=== PATIENT | female | born 1990 | race Hispanic/Latino ===

== ENCOUNTER 2018-02-09 20:00 | Emergency (ER) | payer OTHER ==
[~2018-02-09] VITALS: Ht 152.4 cm; Wt 52.6 kg
[2018-02-09 20:12] VITALS: BP 113/78
--- NOTE | 2018-02-09 21:10 | RADIOLOGY REPORT ---
EXAMINATION: RIGHT KNEE 3 VIEWS CLINICAL INFORMATION: Right knee pain. COMPARISON: None. TECHNIQUE: AP, lateral, oblique views of the right knee were obtained. FINDINGS: There are no fractures or dislocations. There is no knee joint effusion. There is mild soft tissue swelling overlying the patellar tendon. IMPRESSION: Mild soft tissue swelling without fracture or joint effusion.
--- NOTE | 2018-02-09 21:19 | ED UPPER/LOWER EXTREMITY COMPL ---
History of Present Illness General Chief Complaint: Lower Extremity Injury Stated Complaint: "RT KNEE POPPED OUT OF PLACE" Source: patient Exam Limitations: no limitations Vital Signs & Intake/Output Vital Signs & Intake/Output Vital Signs Date Time Temp Pulse Resp B/P B/P Pulse O2 O2 Flow FiO2 Mean Ox Delivery Rate 02/10 2012 98.3 57 18 113/78 97 Room Air ED Intake and Output 02/10 0000 02/09 1200 Intake Total Output Total Balance Patient 116 lb Weight Weight Reported by Patient Measurement Method Allergies Coded Allergies: No Known Drug Allergies (NKDA 02/09/18) Reconcile Medications Meloxicam (Mobic) 15 MG TABLET 1 TAB PO DAILY PRN pain Triage Note: PT TO ED C/O SWELLING TO RT KNEE CAP, NOTICED 30 MINS - 1 HR AGO. STATES DID A LOT OF CLEANING TODAY ON HER KNEES. "IT LOOKED LIKE IT WAS OUT OF PLACE" PT AMBULATING WITHOUT DIFFICULTY. C/O "PULLING FEELING" FROM KNEE CAP DOWN FRONT OF LEG. MEDICATED WITH 600 MG IBUPROFIN IN TRIAGE. Triage Nurses Notes Reviewed? yes Onset: Gradual Duration: hour(s): Timing: single episode today Severity: moderate Pain/Injury Location: Right: Knee. : No Patient currently breastfeeds: No HPI: 28yo female presents to ED complaining of right knee pain with swelling beginning today. Patient states that earlier today she was working on her knees and cleaning her home. She notes that as the day went on she has pain in right knee with swelling. Patient is worried that the knee cap is out of place because she felt a popping sensation. Patient states that her knee cap appeared to be dislocated laterally however she moved it back into the right place. She had no trauma or fall prior to onset of symptoms. Patient denies numbess, tingling. (Dahlia Limon) Past History Travel History Traveled to [place] past 21 day No Medical History Any Pertinent Medical History? none Neurological: NONE EENT: NONE Cardiovascular: NONE Respiratory: NONE Gastrointestinal: NONE Hepatic: NONE Renal: NONE Musculoskeletal: NONE Psychiatric: NONE Endocrine: NONE Blood Disorders: NONE Cancer(s): NONE Surgical History Surgical History: non-contributory Psychosocial History What is your primary language Maltese Tobacco Use: Never used ETOH Use: occasional use Illicit Drug Use: denies illicit drug use Family History Hx Contributory? No (Dahlia Limon) Review of Systems Review of Systems Constitutional: Reports: no symptoms. EENTM: Reports: no symptoms. Respiratory: Reports: no symptoms. Cardiovascular: Reports: no symptoms. Gastrointestinal/Abdominal: Reports: no symptoms. Genitourinary: Reports: no symptoms. Musculoskeletal: Reports: see HPI. Skin: Reports: no symptoms. Neurological/Psychological: Reports: no symptoms. Hematologic/Endocrine: Reports: no symptoms. Immunological: Reports: no symptoms. All Other Systems: Reviewed and Negative (Dahlia Limon) Physical Exam Physical Exam General Appearance: well developed/nourished, no apparent distress, alert, awake Head: atraumatic, normal appearance Eyes: Bilateral: normal appearance. Ears, Nose, Throat: hearing grossly normal Neck: normal inspection, supple, full range of motion Cardiovascular/Respiratory: normal peripheral pulses, no respiratory distress Peripheral Pulses: 2+ dorsalis pedis (R) Back: normal inspection, normal range of motion Leg Left: normal range of motion, normal inspection Leg Right: normal range of motion, normal inspection Hip Left: normal range of motion, normal inspection Hip Right: normal range of motion, normal inspection Knee Left: normal range of motion, normal inspection Knee Right: mild swelling to anterior knee around patella, tenderness to palpation of patella without obvious dislocation or deformity Foot Left: normal inspection, normal range of motion Foot Right: normal inspection, normal range of motion Neurologic/Tendon: normal sensation, normal motor functions, normal tendon functions Skin: intact, normal color, warm/dry (Dahlia Limon) Progress Differential Diagnosis: dislocation, fracture, sprain, tendon injury Plan of Care: Orders Procedure Date/time Status URINE 02/09 2007 Complete Laboratory Tests 02/09/18 2015: Urine Test NEGATIVE Patient's x-rays show no acute bony abnormality, no dislocation. Patient has soft tissue swelling around patella however no joint effusion. Symptoms likely related to overuse injury/strain today. There is no trauma, low suspicion for a patellar dislocation. Patient placed in Lucio wrap for stability and she will begin RICE therapy and NSAIDS. Patient given referral to orthopedic doctor for persistent symptoms. Patient informed that if her symptoms are persistent she may require further imaging such as an MRI. Patient ambulatory here in the emergency Department with steady gait. She has intact distal pulses. No trauma or inciting event prior to onset of her symptoms, low suspicion for arterial abnormality at this time. Diagnostic Imaging: Viewed by Me: Radiology Read. Discussed w/RAD: Radiology Read. Radiology Impression: PATIENT: ARMOND GURROLA PRESENT AGE: 28 PATIENT ACCOUNT NO: [id number] : 89 LOCATION: [facility] ORDERING PHYSICIAN: Jassi Middleton MD SERVICE DATE: 02/09/18 EXAM TYPE: RAD - XRY-KNEE COMPLETE RIGHT EXAMINATION: RIGHT KNEE 3 VIEWS CLINICAL INFORMATION: Right knee pain. COMPARISON: None. TECHNIQUE: AP, lateral, oblique views of the right knee were obtained. FINDINGS: There are no fractures or dislocations. There is no knee joint effusion. There is mild soft tissue swelling overlying the patellar tendon. IMPRESSION: Mild soft tissue swelling without fracture or joint effusion. DICTATED BY: Prabhakar Mccallum MD DATE/TIME DICTATED:02/09/182105 DRIER AND GRINDER TENDER:TRAN DATE/TIME TRANSCRIBED:2105 CONFIDENTIAL, DO NOT COPY WITHOUT APPROPRIATE AUTHORIZATION. < Electronically signed in Other Vendor System> SIGNED BY: Prabhakar Mccallum MD 02/09/182109 (Dahlia Limon) Departure Departure Disposition: HOME OR SELF CARE Condition: Stable Clinical Impression Primary Impression: Knee strain Qualifiers: Encounter type: initial encounter Laterality: right Qualified Code: S86.911A - Strain of unspecified muscle(s) and tendon(s) at lower leg level, right leg, initial encounter Referrals: Unknown (PCP/Family) Additional Instructions: Take meloxicam as prescribed as needed for pain, swelling, inflammation. Wear Lucio wrap as needed for swelling. If you do not find this gives you enough support it is recommended to purchase soft knee brace. You were given a referral to an orthopedic physician to follow-up with if persistent symptoms. Return if you have any worsening symptoms or concerns. Please note that there might be incidental findings in your evaluation that are unrelated to the current emergency department visit. Please notify your primary care doctor about this emergency department visit in order to obtain and review all of the testing performed so that these incidental findings can be monitored as needed. If you had an x-ray performed, please understand that some fractures may not be seen on the initial set of x-rays. If your symptoms persist you might need a repeat set of x-rays to check for such a fracture. If you had a laceration evaluated, please understand that foreign bodies such as glass or wood may not be visible to the naked eye or on plain x-rays. If the wound becomes red, swollen, increasingly more painful or if there is any drainage from the wound, please have it reevaluated by a physician for the possibility of a retained foreign body. If you're unable to follow up as outlined in the discharge instructions please return to the emergency department. Thank you for choosing the [facility] Emergency Department for your care. It was a pleasure to serve you today. Departure Forms: Customer Survey General Discharge Information Prescriptions: Current Visit Scripts Meloxicam (Mobic) 1 TAB PO DAILY PRN pain #30 TAB (Rani LUCAS,Dahlia Fitch) PA/[employer] Co-Sign Statement Statement: ED Attending supervision documentation- [] I saw and evaluated the patient. I have also reviewed all the pertinent lab results and diagnostic results. I agree with the findings and the plan of care as documented in the PA's/[employer]'s documentation. [X] I have reviewed the ED Record and agree with the PA's/[employer]'s documentation. [] Additions or exceptions (if any) to the PAs/COM[employer]'s note and plan are summarized below: [] (Kane OSEGUERA,Jassi Leung)
[2018-02-09] MEDS ORDERED: MOBIC15 M1 PO (21:56)
== END 2018-02-09 22:03 ==
LOC: ERH 20:00
DX: S86.911A Strain of unspecified muscle(s) and tendon(s) at lower leg level, right leg, initial encounter (principal); X58.XXXA Exposure to other specified factors, initial encounter; Y93.E9 Activity, other interior property and clothing maintenance; Y92.009 Unspecified place in unspecified non-institutional (private) residence as the place of occurrence of the external cause
CPT/HCPCS: 73562-RT; 81025